=== PATIENT | female | born 1935 | race Caucasian/White ===

== ENCOUNTER 2018-03-04 20:44 | Inpatient (IN) | payer MEDICARE, OTHER ==
[2018-03-04] MEDS ORDERED: ONDANSETRON 4 MG INJ (21:28)
[2018-03-04] MEDS: morphine 2 MG INJ IV (21:32)
[2018-03-04] MEDS: morphine 4 MG/ML VIAL IV (23:09)
[2018-03-04] MEDS: ONDANSETRON 4 MG INJ IV (23:53)
[2018-03-04] MEDS: HYDROmorphONE 0.5 MG/0.5 ML SYG IV (23:53)
[2018-03-05] MEDS ORDERED: NACL 0.9% 3 ML SYG IV
[2018-03-05] MEDS ORDERED: ACETAMINOPHEN 325 MG TAB PO ×2
[2018-03-05] MEDS ORDERED: DOCUSATE SODIUM 100 MG CAP PO
[2018-03-05 00:16] LABS: ADD MAN DIFF? NO
[2018-03-05 00:17] LABS: WHITE BLOOD COUNT 10.7 10^3/ul (4.8-10.8)
[2018-03-05 00:17] LABS: BASOPHILS % 0.4 % (0.0-2.0); EOSINOPHILS # 0.1 10^3/ul (0.0-0.5); EOSINOPHILS % 1.3 % (0.0-7.0); HEMATOCRIT 36.9 % (37.0-47.0); HEMOGLOBIN 12.3 g/dl (12.0-16.0); LYMPHOCYTES # 2.4 10^3/ul (0.8-2.9); LYMPHOCYTES % 22.1 % (15.0-51.0); MEAN CORPUSCULAR HEMOGLOBIN 31.1 pg (29.0-33.0); MEAN CORPUSCULAR HGB CONC 33.3 g/dl (32.0-37.0); MEAN CORPUSCULAR VOLUME 93.2 fl (82.0-101.0); MEAN PLATELET VOLUME 11.9 fl (7.4-10.4); MONOCYTE # 0.8 10^3/ul (0.3-0.9); MONOCYTES % 7.2 % (0.0-11.0); NEUTROPHIL # 7.3 10^3/ul (1.6-7.5); NEUTROPHILS % 67.7 % (39.0-77.0); PLATELET COUNT 165 10^3/UL (140-415); RED BLOOD COUNT 3.96 10^6/ul (4.20-5.40); RED CELL DISTRIBUTION WIDTH 13.2 % (11.5-14.5)
[2018-03-05 00:26] LABS: ANION GAP 11 (8-16); BLOOD UREA NITROGEN 18 mg/dl (7-20); CALCIUM 9.2 mg/dl (8.4-10.2); CARBON DIOXIDE 30 mmol/L (21-31); CHLORIDE 100 mmol/L (97-110); CREATININE 0.77 mg/dl (0.44-1.00); GLUCOSE 111 mg/dl (70-220); POTASSIUM 3.9 mmol/L (3.5-5.1); SODIUM 137 mmol/L (135-144)
[2018-03-05] MEDS: HYDROmorphONE 1 MG/ML SYG IV ×2 (05:00→08:40)
[2018-03-05] MEDS: HYDROmorphONE 0.5 MG/0.5 ML SYG IV (05:02)
[2018-03-05 05:08] LABS: ADD MAN DIFF? NO
[2018-03-05 05:21] LABS: BASOPHILS % 0.1 % (0.0-2.0); EOSINOPHILS % 0.1 % (0.0-7.0); HEMATOCRIT 36.9 % (37.0-47.0); HEMOGLOBIN 12.1 g/dl (12.0-16.0); LYMPHOCYTES % 6.5 % (15.0-51.0); MEAN CORPUSCULAR HEMOGLOBIN 30.6 pg (29.0-33.0); MEAN CORPUSCULAR HGB CONC 32.8 g/dl (32.0-37.0); MEAN CORPUSCULAR VOLUME 93.2 fl (82.0-101.0); MEAN PLATELET VOLUME 11.1 fl (7.4-10.4); MONOCYTE # 0.8 10^3/ul (0.3-0.9); MONOCYTES % 5.2 % (0.0-11.0); NEUTROPHIL # 12.8 10^3/ul (1.6-7.5); NEUTROPHILS % 87.7 % (39.0-77.0); PLATELET COUNT 154 10^3/UL (140-415); RED BLOOD COUNT 3.96 10^6/ul (4.20-5.40); RED CELL DISTRIBUTION WIDTH 13.2 % (11.5-14.5)
[2018-03-05 05:21] LABS: WHITE BLOOD COUNT 14.6 10^3/ul (4.8-10.8)
[2018-03-05 05:36] LABS: ALANINE AMINOTRANSFERASE 31 IU/L (13-69); ALBUMIN 3.8 g/dl (3.3-4.9); ALBUMIN/GLOBULIN RATIO 1.22; ALKALINE PHOSPHATASE 92 IU/L (42-121); ANION GAP 12 (8-16); ASPARTATE AMINO TRANSFERASE 29 IU/L (15-46); BILIRUBIN,INDIRECT 0.6 mg/dl (0-1.1); BILIRUBIN,TOTAL 0.6 mg/dl (0.2-1.3); BLOOD UREA NITROGEN 18 mg/dl (7-20); CALCIUM 9.2 mg/dl (8.4-10.2); CARBON DIOXIDE 31 mmol/L (21-31); CHLORIDE 100 mmol/L (97-110); CHOL/HDL RATIO 2.3 RATIO; CHOLESTEROL 127 mg/dl (100-200); GLUCOSE 156 mg/dl (70-220); HDL CHOLESTEROL 54 mg/dl (33-92); LDL CHOLESTEROL,CALCULATED 59 mg/dl; MAGNESIUM 1.7 mg/dl (1.7-2.5); POTASSIUM 4.7 mmol/L (3.5-5.1); SODIUM 138 mmol/L (135-144); TOTAL PROTEIN 6.9 g/dl (6.1-8.1); TRIGLYCERIDES 70 mg/dl (0-149)
[2018-03-05] MEDS: ONDANSETRON 4 MG INJ IV (05:56)
[2018-03-05] MEDS: ATENOLOL 25 MG TAB PO (08:21)
[2018-03-05] MEDS: HYDROCHLOROTHIAZIDE 25 MG TAB PO (08:23)
[2018-03-05 08:45] LABS: HEMOGLOBIN A1C 5.3 % (0-5.9)
[2018-03-05 12:15] LABS: ADD UMIC NO; UR ASCORBIC ACID 20 mg/dL (NEGATIVE); UR BILIRUBIN (Dip) NEGATIVE (NEGATIVE); UR BLOOD (Dip) NEGATIVE (NEGATIVE); UR CLARITY CLEAR (CLEAR); UR COLOR YELLOW (YELLOW); UR GLUCOSE (Dip) NEGATIVE (NEGATIVE); UR KETONES (Dip) NEGATIVE (NEGATIVE); UR LEUKOCYTE ESTERASE (Dip) NEGATIVE Leu/ul (NEGATIVE); UR NITRITE (Dip) NEGATIVE (NEGATIVE); UR SPECIFIC GRAVITY (Dip) 1.015 (1.003-1.030); UR TOTAL PROTEIN (Dip) NEGATIVE (NEGATIVE); UR UROBILINOGEN (Dip) NEGATIVE (NEGATIVE)
[2018-03-05] MEDS: ATORVASTATIN 10 MG TAB PO (20:26)
[2018-03-05] MEDS: HYDROmorphONE 2 MG TAB PO (23:28)
[2018-03-06] MEDS: HYDROCHLOROTHIAZIDE 25 MG TAB PO (09:27)
[2018-03-06] MEDS: CHOLECALCIFEROL 1,000 UNIT TAB PO (09:27)
[2018-03-06] MEDS: HYDROCODONE/APAP (5/325) TAB PO (09:28)
[2018-03-06] MEDS: ATENOLOL 25 MG TAB PO (09:28)
[2018-03-06] MEDS: HYDROmorphONE 2 MG TAB PO ×2 (14:29→21:55)
[2018-03-06] MEDS: ATORVASTATIN 10 MG TAB PO (21:52)
[2018-03-07] MEDS: CHOLECALCIFEROL 1,000 UNIT TAB PO (09:11)
[2018-03-07] MEDS: HYDROCHLOROTHIAZIDE 25 MG TAB PO (09:11)
[2018-03-07] MEDS: ATENOLOL 25 MG TAB PO (09:12)
[2018-03-07] MEDS: HYDROCODONE/APAP (5/325) TAB PO (12:49)
[2018-03-07] MEDS: ATORVASTATIN 10 MG TAB PO (20:59)
[2018-03-08] MEDS: BISACODYL (EC) 5 MG TAB PO (05:45)
[2018-03-08] MEDS: ATENOLOL 25 MG TAB PO (09:28)
[2018-03-08] MEDS: CHOLECALCIFEROL 1,000 UNIT TAB PO (09:28)
[2018-03-08] MEDS: HYDROCHLOROTHIAZIDE 25 MG TAB PO (09:29)
[2018-03-08] MEDS: ERGOCALCIFEROL 50,000 UNIT CAP PO (13:06)
[2018-03-08] MEDS: HYDROmorphONE 2 MG TAB PO (13:07)
== END 2018-03-08 14:54 | DRG 536 ==
LOC: MS1 23:46 → E/R 20:44
DX: S32.511A Fracture of superior rim of right pubis, initial encounter for closed fracture (principal); S30.1XXA Contusion of abdominal wall, initial encounter; K57.90 Diverticulosis of intestine, part unspecified, without perforation or abscess without bleeding; Z79.82 Long term (current) use of aspirin; I10 Essential (primary) hypertension; E78.5 Hyperlipidemia, unspecified; F41.9 Anxiety disorder, unspecified; W18.30XA Fall on same level, unspecified, initial encounter; Y92.009 Unspecified place in unspecified non-institutional (private) residence as the place of occurrence of the external cause
CPT/HCPCS: 72170; 72192; 73510; 73550; 80048; 80053; 80061; 81003; 82306; 83036; 83735; 84443; 85025; 96374; 96375; 96376; 97110; 97163; 97530; 99285-25

== ENCOUNTER 2019-05-28 12:26 | Emergency (ER) | payer MEDICARE, OTHER ==
[2019-05-28 13:00] LABS: ADD MAN DIFF? NO
[2019-05-28 13:04] LABS: BASOPHILS % 0.6 % (0.0-2.0); EOSINOPHILS # 0.2 10^3/ul (0.0-0.5); EOSINOPHILS % 3.3 % (0.0-7.0); HEMATOCRIT 38.2 % (37.0-47.0); HEMOGLOBIN 12.5 g/dl (12.0-16.0); LYMPHOCYTES # 1.7 10^3/ul (0.8-2.9); LYMPHOCYTES % 24.6 % (15.0-51.0); MEAN CORPUSCULAR HEMOGLOBIN 30.3 pg (29.0-33.0); MEAN CORPUSCULAR HGB CONC 32.7 g/dl (32.0-37.0); MEAN CORPUSCULAR VOLUME 92.5 fl (82.0-101.0); MONOCYTE # 0.6 10^3/ul (0.3-0.9); MONOCYTES % 7.8 % (0.0-11.0); NEUTROPHIL # 4.5 10^3/ul (1.6-7.5); NEUTROPHILS % 63.6 % (39.0-77.0); PLATELET COUNT 194 10^3/UL (140-415); RED BLOOD COUNT 4.13 10^6/ul (4.20-5.40)
[2019-05-28 13:24] LABS: ALANINE AMINOTRANSFERASE 20 IU/L (13-69); ALBUMIN/GLOBULIN RATIO 1.14; ALKALINE PHOSPHATASE 87 IU/L (42-121); ANION GAP 9 (5-13); ASPARTATE AMINO TRANSFERASE 31 IU/L (15-46); BILIRUBIN,INDIRECT 0.7 mg/dl (0-1.1); BILIRUBIN,TOTAL 0.7 mg/dl (0.2-1.3); BLOOD UREA NITROGEN 19 mg/dl (7-20); CALCIUM 9.2 mg/dl (8.4-10.2); CARBON DIOXIDE 25 mmol/L (21-31); CHLORIDE 106 mmol/L (97-110); CREATININE 0.83 mg/dl (0.44-1.00); GLUCOSE 98 mg/dl (70-220); POTASSIUM 3.3 mmol/L (3.5-5.1); SODIUM 140 mmol/L (135-144); TOTAL PROTEIN 7.5 g/dl (6.1-8.1)
[2019-05-28] MEDS: ASPIRIN 325 MG TAB PO (13:34)
[2019-05-28 13:35] LABS: TROPONIN-I < 0.012 ng/ml (0.000-0.120)
== END 2019-05-28 14:31 | disposition home or self-care (01) ==
LOC: E/R 12:26
DX: R42 Dizziness and giddiness (principal); I10 Essential (primary) hypertension; Z79.82 Long term (current) use of aspirin
CPT/HCPCS: 36415; 71045; 80053; 84484; 85025; 93005; 99285-25